=== PATIENT | female | born 1935 | race Caucasian/White ===

== ENCOUNTER → 2017-12-20 | Outpatient (CLI) | payer OTHER, BC ==
[~2017-12-20] MED LIST: AMLODIPINE BESYL5 MG PO; ASPIRIN EC81 M1 PO; BENAZEPRIL HCL20 MG PO; BIOTIN1 MG PO; CALCITRIOL0.25 MCG PO; CALTRATE-600 W1 EACH PO; COUMADIN 4 MG TA4 M1 PO; COUMADIN 5 MG TA5 M1 PO; FISH OIL 1,0001 EAC5 PO; FISH OIL 1,2001 EAC3 PO; GLUCOPHAGE XR750 MG PO; HYDROCHLOROTHIA25 M2 PO; KLOR-CON 10 ER10 MEQ PO; LASIX 40 MG TAB40 M2 PO; LOPRESSOR 50 MG50 M1 PO; PERCOCET 5-3251 EACH PO; PREDNISONE 10 M10 MG PO; PREDNISONE 5 MG5 M1 PO; PREDNISONE PO; PRILOSEC20 MG PO; SLOW-MAG64 MG PO; TOPROL XL25 MG PO; VITAMIN D400 UNI1 PO; XANAX 0.5 MG0.5 M1 PO; XARELTO10 MG PO; ZOCOR 20 MG TAB20 M1 PO
== END ==
LOC: HYPER 07:16
DX: T81.31XD Disruption of external operation (surgical) wound, not elsewhere classified, subsequent encounter (principal); E11.622 Type 2 diabetes mellitus with other skin ulcer; L97.321 Non-pressure chronic ulcer of left ankle limited to breakdown of skin; C44.729 Squamous cell carcinoma of skin of left lower limb, including hip; F41.9 Anxiety disorder, unspecified; F32.9 Major depressive disorder, single episode, unspecified; Z85.828 Personal history of other malignant neoplasm of skin; Z87.891 Personal history of nicotine dependence; Y83.8 Other surgical procedures as the cause of abnormal reaction of the patient, or of later complication, without mention of misadventure at the time of the procedure

== ENCOUNTER → 2017-12-27 | Outpatient (CLI) | payer OTHER, BC | LOC: HYPER 07:15 | DX: T81.31XD Disruption of external operation (surgical) wound, not elsewhere classified, subsequent encounter (principal); E11.622 Type 2 diabetes mellitus with other skin ulcer; L97.321 Non-pressure chronic ulcer of left ankle limited to breakdown of skin; C44.729 Squamous cell carcinoma of skin of left lower limb, including hip; F41.9 Anxiety disorder, unspecified; F32.9 Major depressive disorder, single episode, unspecified; Z87.891 Personal history of nicotine dependence; Y83.8 Other surgical procedures as the cause of abnormal reaction of the patient, or of later complication, without mention of misadventure at the time of the procedure ==

== ENCOUNTER → 2018-01-10 | Outpatient (CLI) | payer OTHER, BC | LOC: HYPER 06:57 | DX: T86.828 Other complications of skin graft (allograft) (autograft) (principal); E11.622 Type 2 diabetes mellitus with other skin ulcer; L97.321 Non-pressure chronic ulcer of left ankle limited to breakdown of skin; C44.729 Squamous cell carcinoma of skin of left lower limb, including hip; F41.9 Anxiety disorder, unspecified; F32.9 Major depressive disorder, single episode, unspecified; Z85.828 Personal history of other malignant neoplasm of skin; Y83.2 Surgical operation with anastomosis, bypass or graft as the cause of abnormal reaction of the patient, or of later complication, without mention of misadventure at the time of the procedure ==

== ENCOUNTER → 2018-01-18 | Outpatient (CLI) | payer OTHER, BC | LOC: HYPER 06:51 | DX: T86.828 Other complications of skin graft (allograft) (autograft) (principal); E11.622 Type 2 diabetes mellitus with other skin ulcer; L97.321 Non-pressure chronic ulcer of left ankle limited to breakdown of skin; C44.729 Squamous cell carcinoma of skin of left lower limb, including hip; F41.9 Anxiety disorder, unspecified; F32.9 Major depressive disorder, single episode, unspecified; Z87.891 Personal history of nicotine dependence; Y83.2 Surgical operation with anastomosis, bypass or graft as the cause of abnormal reaction of the patient, or of later complication, without mention of misadventure at the time of the procedure ==

== ENCOUNTER → 2018-01-26 | Outpatient (CLI) | payer OTHER, BC | LOC: HYPER 06:47 | DX: T86.828 Other complications of skin graft (allograft) (autograft) (principal); E11.622 Type 2 diabetes mellitus with other skin ulcer; L97.321 Non-pressure chronic ulcer of left ankle limited to breakdown of skin; C44.729 Squamous cell carcinoma of skin of left lower limb, including hip; F32.9 Major depressive disorder, single episode, unspecified; F41.9 Anxiety disorder, unspecified; Z87.891 Personal history of nicotine dependence; Y83.2 Surgical operation with anastomosis, bypass or graft as the cause of abnormal reaction of the patient, or of later complication, without mention of misadventure at the time of the procedure ==

== ENCOUNTER → 2018-02-03 | Outpatient (CLI) | payer OTHER, BC | LOC: HYPER 07:03 | DX: T86.828 Other complications of skin graft (allograft) (autograft) (principal); E11.622 Type 2 diabetes mellitus with other skin ulcer; L97.321 Non-pressure chronic ulcer of left ankle limited to breakdown of skin; C44.729 Squamous cell carcinoma of skin of left lower limb, including hip; F41.9 Anxiety disorder, unspecified; F32.9 Major depressive disorder, single episode, unspecified; Z87.891 Personal history of nicotine dependence; Z85.828 Personal history of other malignant neoplasm of skin; Y83.2 Surgical operation with anastomosis, bypass or graft as the cause of abnormal reaction of the patient, or of later complication, without mention of misadventure at the time of the procedure ==

== ENCOUNTER → 2018-02-23 | Outpatient (CLI) | payer OTHER, BC | LOC: HYPER 02-09 07:58 | DX: T81.31XD Disruption of external operation (surgical) wound, not elsewhere classified, subsequent encounter (principal); C44.729 Squamous cell carcinoma of skin of left lower limb, including hip; F41.9 Anxiety disorder, unspecified; F32.9 Major depressive disorder, single episode, unspecified; Z87.891 Personal history of nicotine dependence; Y83.8 Other surgical procedures as the cause of abnormal reaction of the patient, or of later complication, without mention of misadventure at the time of the procedure ==

== ENCOUNTER → 2018-03-23 | Outpatient (CLI) | payer OTHER, BC ==
[~2018-03-23] MED LIST changes: +BUPROPION HCL150 M1 PO; +DAPTOMYCIN350 MG IV; +IRON325 PO; +LASIX 20 MG TAB20 MG PO; +METOPROLOL TART25 MG PO; +NEURONTIN 300300 M1 PO; +POTASSIUM20 MEQ/15 PO
== END ==
LOC: HYPER 07:02
DX: T81.31XD Disruption of external operation (surgical) wound, not elsewhere classified, subsequent encounter (principal); E11.622 Type 2 diabetes mellitus with other skin ulcer; L97.321 Non-pressure chronic ulcer of left ankle limited to breakdown of skin; C44.729 Squamous cell carcinoma of skin of left lower limb, including hip; F41.9 Anxiety disorder, unspecified; F32.9 Major depressive disorder, single episode, unspecified; Z87.891 Personal history of nicotine dependence; Z85.828 Personal history of other malignant neoplasm of skin; Y83.8 Other surgical procedures as the cause of abnormal reaction of the patient, or of later complication, without mention of misadventure at the time of the procedure

== ENCOUNTER → 2018-03-28 | Outpatient (CLI) | payer OTHER, BC ==
[~2018-03-28] VITALS: Ht 162.6 cm; Wt 61.2 kg
--- NOTE | ~2018-03-28 | P ---
[facility] [place] [address] PROCEDURE REPORT Name: JENNIFER LUAJN Katina Room #: REG [facility]#: [id number] Admission: 03/28/18 Attend Phys: Emeterio Levy MD Discharge: Date of : 39 Report #: [id number] THIS REPORT FOR: //name// CC: Emeterio Levy BRIEF HISTORY: The patient is an 82-year-old woman who has a history of colon polyps. She has had recurrent diverticulitis in the past, episode of diverticulitis and also septicemia with positive blood cultures. 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 She is on Xarelto for her heart valve and AFib. PREOPERATIVE DIAGNOSES: History of colon polyps, recurrent diverticulitis. POSTOPERATIVE DIAGNOSES: 1. Colon polyps. 2. Rectal polyp. 3. Diverticulosis coli. 4. Internal hemorrhoids. MEDICATIONS: Deep sedation with propofol per anesthesia. SPECIMENS: 1. Cecal polyp. 2. Polyps x 2 rectum. ESTIMATED BLOOD LOSS: 3 mL. PROCEDURE: Colonoscopy to cecum with snare polypectomy. FINDINGS: Prior to propofol sedation, procedure of colonoscopy discussed with the patient of all potential risks and its complications. She indicates she understands and desires to proceed. DESCRIPTION OF PROCEDURE: With the patient in left lateral decubitus position, digital examination was completed, which revealed no abnormalities. Subsequently, we started the procedure with the Olympus video colonoscope. However, as we did advance the scope into the sigmoid, there were sharp angulations, scope would not pass even when splinted in the abdomen. We switched to hybrid colonoscope and very carefully we are going to pass it through the difficult sigmoid colon. The scope was advanced into the cecum, which was identified by the appendiceal orifice and the ileocecal valve. I was able to advance the tip of the scope to mouth of the ileocecal valve, but due to looping could not pass it into the ileum. At that point, the scope was slowly withdrawn and careful circumferential views were obtained. It is noted there were several large stools of liquidy stool material scattered around the colon. Fortunately, these were fairly thin with minimal particulate material and we [facility] [address] [place] [address] PROCEDURE REPORT Name: JENNIFER LUJAN Katina Room #: REG [facility]..#: [id number] Admission: 03/28/18 Attend Phys: Emeterio Levy MD Discharge: Date of : 39 Report #: [id number] were able to remove much of this material and overall a satisfactory prep was obtained. In the cecum, a sessile 6-8 mm polyp was seen and removed by snare polypectomy. Unfortunately, they did not come out with the initial pass. We then cleaned up edges of the device with biopsy forceps. The scope was then withdrawn to remainder of the colon. The mucosa was within normal limits, normal vascular pattern, normal light reflex. There were a few scattered diverticula seen in the proximal colon. There was no endoscopic evidence of diverticulitis. As we withdrew the scope, no additional abnormalities were noted until the left colon was reached, particularly the sigmoid colon she was noted to have moderately severe diverticular disease without endoscopic evidence of diverticulitis. There is no purulent material or erythema. There was sharp angulation in the region of the distal sigmoid, which likely caused difficulty with forward advancing the scope initially. However, no other lesions were seen. The lumen was also somewhat narrowed consistent with recurrent diverticulitis. Again, active diverticulitis was not seen. In the rectum, 2 polyps were seen in the range of about 5 mm each. They were each removed by cold snare polypectomy and recovered. Upon retroflexion, hemorrhoids were seen. Scope was withdrawn. The patient tolerated the procedure well. CONDITION OF THE PATIENT UPON DISCHARGE: Following the procedure, the patient is drowsy and arousable. She will be discharged home when fully ambulatory. INSTRUCTIONS TO THE PATIENT AND FAMILY AT THE TIME OF DISCHARGE: We will follow up on the path. However, since it was piecemeal removal of the polyp in the cecum, we will have her return in 2 years for high risk screening and to ensure complete removal of polyp. She has had recent diverticulitis. I do not see evidence of diverticulitis on exam today. However, due to her history, segmental resection would be reasonable. We will discuss further with the patient. At this point, suggest high-fiber diet. Also, suggest MiraLax once or twice daily as needed for management of constipation. She will return to care of Dr. Emeterio Schwab and return to see me as needed. By: [id number] Emeterio Levy MD /nt
--- NOTE | 2018-03-30 15:06 | PATH ---
[facility] [address] [place] [address] PATHOLOGY RPT PROCEDURE Name: SINDI LUJAN Katina Room #: REG [facility] MShonda.#: [id number] Admission: 03/28/18 Date of : 39 Discharge: Report #: [id number] Path Case #: [id number] [facility] Accession Number: [id number] . 01 Material submitted: . PART A: POLYP AT CECUM PART B: POLYP AT RECTUM X2 . 01 Clinical history: . Pre-OP DX: Diverticulitis Post-OP DX: Colon polyp, rectal polyp, diverticulosis . 02 Diagnosis: A. Polyp, at cecum, endoscopic biopsy: - Tubular adenoma, multiple fragments. - Negative for high grade dysplasia. . B. Polyp x2, rectum, endoscopic biopsy: - Tubular adenoma without high grade dysplasia. - Hyperplastic polyp without dysplasia. . (IUV:mml; 03/30/2018) QLM/03/30/2018 . 02 Electronically signed: . Katie Richardson MD, Pathologist NPI- [id number] . 01 Gross description: . A. Received in formalin labeled "Sindi Lujan, polyp at cecum," are multiple segments of martinez soft tissue measuring 2.1 x 0.9 x 0.3 cm in aggregate dimensions. The specimen is filtered and entirely submitted in cassette A1. . B. Received in formalin labeled "Sindi Lujan, polyp rectum x2," are 2 segments of martinez soft tissue measuring 1.1 x 0.3 x 0.3 cm in aggregate dimensions and ranging from 0.5 to 0.6 cm in maximum dimension. The specimen is submitted entirely in cassette B1. (TSD; 03/28/2018) TOB/TOB . 02 Pathologist provided ICD-10: D12.0, D12.8 . 02 CPT . 961753, 076332 Specimen Comment: A courtesy [place] [address] PATHOLOGY RPT PROCEDURE Name: SINDI LUJAN Room #: REG [facility]#: [id number] Admission: 03/28/18 Date of : 39 Discharge: Report #: [id number] Path Case #: [id number] Specimen Comment: [phone], . Specimen Comment: Report sent to / DR FITCH Performed at: 01 [facility] [address], [place], [place] [id number] MD Remigio Pulliam MD Phone: [phone] Performed at: [address] [id number] MD Katie Richardson MD Phone: [phone]
== END | disposition home or self-care (01) ==
LOC: GI 06:58
DX: D12.0 Benign neoplasm of cecum (principal); D12.8 Benign neoplasm of rectum; K57.30 Diverticulosis of large intestine without perforation or abscess without bleeding; K64.8 Other hemorrhoids; I10 Essential (primary) hypertension; E11.9 Type 2 diabetes mellitus without complications; I48.91 Unspecified atrial fibrillation; E78.5 Hyperlipidemia, unspecified; K21.9 Gastro-esophageal reflux disease without esophagitis; M35.3 Polymyalgia rheumatica; F32.9 Major depressive disorder, single episode, unspecified; F41.9 Anxiety disorder, unspecified; Z98.890 Other specified postprocedural states; Z79.01 Long term (current) use of anticoagulants; Z86.010 Personal history of colon polyps; Z86.73 Personal history of transient ischemic attack (TIA), and cerebral infarction without residual deficits; Z95.2 Presence of prosthetic heart valve; Z95.0 Presence of cardiac pacemaker; Z85.828 Personal history of other malignant neoplasm of skin; Z87.891 Personal history of nicotine dependence; Z88.0 Allergy status to penicillin; Z79.899 Other long term (current) drug therapy
CPT/HCPCS: 62110; 62900

== ENCOUNTER → 2018-05-16 | Outpatient (CLI) | payer OTHER, BC | LOC: HYPER 04-25 06:41 | DX: T81.31XD Disruption of external operation (surgical) wound, not elsewhere classified, subsequent encounter (principal); E11.622 Type 2 diabetes mellitus with other skin ulcer; L97.321 Non-pressure chronic ulcer of left ankle limited to breakdown of skin; C44.729 Squamous cell carcinoma of skin of left lower limb, including hip; F41.9 Anxiety disorder, unspecified; F32.9 Major depressive disorder, single episode, unspecified; Z87.891 Personal history of nicotine dependence; Z85.828 Personal history of other malignant neoplasm of skin; Y83.8 Other surgical procedures as the cause of abnormal reaction of the patient, or of later complication, without mention of misadventure at the time of the procedure ==

== ENCOUNTER → 2019-04-24 | Outpatient (CLI) | payer OTHER, BC ==
--- NOTE | ~2019-04-24 | HC ---
[facility] [place] [address] CONSULTATION Name: JENNIFER LUJAN [facility] [id number] Admission: 04/24/19 Attend Phys: Carlos Eduardo Garcia MD Discharge: Date of : 39 Report #: [id number] THIS REPORT FOR: //name// CC: RICKI Garcia DATE OF SERVICE: 04/24/2019 HYPERBARIC OXYGEN NOTE PERSONAL PHYSICIAN: Emeterio Schwab M.D. CHIEF COMPLAINT: Osteoradionecrosis of the mandible. 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 It was noted in February by Dr. South on a CT scan of the neck that the patient had developed cortical irregularity and subcortical lucency within the anterior mandible, consistent with osteonecrosis of the mandible. Dr. South has referred the patient to us for hyperbaric oxygen therapy. The patient recently had a left submandibular abscess, which was drained, and started on IV antibiotics. The patient is now followed by Dr. Ricki Ramos for this recent abscess. We have been asked to see the patient and evaluate her for the use of hyperbaric oxygen therapy for treatment of osteoradionecrosis of the mandible. I reviewed the use of hyperbaric oxygen therapy with the patient and she is agreeable to proceeding on our osteoradionecrosis protocol, which will be 2.4 atmospheres absolute treatment with 2 air breaks. For a minimum of 30 treatments, we will continue antibiotics under the care of Dr. Fabrice Ramos. IMPRESSION: 1. 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 2. 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 PLAN: The patient once again will have adjunctive hyperbaric oxygen therapy for treatment of the osteoradionecrosis of the mandible. For complete H and P, please see the EMR wound expert note which is in our EMR. By: [id number] Carlos Eduardo Garcia MD /nt
== END ==
LOC: HYPER 13:03
DX: T81.89XA Other complications of procedures, not elsewhere classified, initial encounter (principal); E11.622 Type 2 diabetes mellitus with other skin ulcer; L98.491 Non-pressure chronic ulcer of skin of other sites limited to breakdown of skin; L59.8 Other specified disorders of the skin and subcutaneous tissue related to radiation; C44.729 Squamous cell carcinoma of skin of left lower limb, including hip; C44.320 Squamous cell carcinoma of skin of unspecified parts of face; I48.91 Unspecified atrial fibrillation; I50.32 Chronic diastolic (congestive) heart failure; M35.3 Polymyalgia rheumatica; M19.90 Unspecified osteoarthritis, unspecified site; M48.00 Spinal stenosis, site unspecified; F41.9 Anxiety disorder, unspecified; F32.9 Major depressive disorder, single episode, unspecified; Z87.891 Personal history of nicotine dependence; Z86.73 Personal history of transient ischemic attack (TIA), and cerebral infarction without residual deficits; Z95.0 Presence of cardiac pacemaker; Z98.49 Cataract extraction status, unspecified eye; Z95.4 Presence of other heart-valve replacement; Z85.828 Personal history of other malignant neoplasm of skin; Y92.89 Other specified places as the place of occurrence of the external cause; Y83.8 Other surgical procedures as the cause of abnormal reaction of the patient, or of later complication, without mention of misadventure at the time of the procedure; Y84.2 Radiological procedure and radiotherapy as the cause of abnormal reaction of the patient, or of later complication, without mention of misadventure at the time of the procedure

== ENCOUNTER → 2019-05-03 | Outpatient (CLI) | payer OTHER, BC | LOC: HYPER 12:11 | DX: T81.89XD Other complications of procedures, not elsewhere classified, subsequent encounter (principal); S01.80XD Unspecified open wound of other part of head, subsequent encounter; L59.8 Other specified disorders of the skin and subcutaneous tissue related to radiation; E11.622 Type 2 diabetes mellitus with other skin ulcer; L98.491 Non-pressure chronic ulcer of skin of other sites limited to breakdown of skin; C44.729 Squamous cell carcinoma of skin of left lower limb, including hip; C44.320 Squamous cell carcinoma of skin of unspecified parts of face; I48.91 Unspecified atrial fibrillation; I50.32 Chronic diastolic (congestive) heart failure; M35.3 Polymyalgia rheumatica; M48.00 Spinal stenosis, site unspecified; M19.90 Unspecified osteoarthritis, unspecified site; M87.88 Other osteonecrosis, other site; F41.9 Anxiety disorder, unspecified; F32.9 Major depressive disorder, single episode, unspecified; Z98.49 Cataract extraction status, unspecified eye; Z86.73 Personal history of transient ischemic attack (TIA), and cerebral infarction without residual deficits; Z87.891 Personal history of nicotine dependence; Z95.4 Presence of other heart-valve replacement; Z95.0 Presence of cardiac pacemaker; Z85.79 Personal history of other malignant neoplasms of lymphoid, hematopoietic and related tissues; X58.XXXD Exposure to other specified factors, subsequent encounter; Y84.2 Radiological procedure and radiotherapy as the cause of abnormal reaction of the patient, or of later complication, without mention of misadventure at the time of the procedure; Y83.8 Other surgical procedures as the cause of abnormal reaction of the patient, or of later complication, without mention of misadventure at the time of the procedure ==

== ENCOUNTER → 2019-05-05 | Outpatient (CLI) | payer OTHER, BC | LOC: HYPER 11:13 | DX: T81.89XD Other complications of procedures, not elsewhere classified, subsequent encounter (principal); L59.8 Other specified disorders of the skin and subcutaneous tissue related to radiation; E11.622 Type 2 diabetes mellitus with other skin ulcer; L98.491 Non-pressure chronic ulcer of skin of other sites limited to breakdown of skin; S01.80XD Unspecified open wound of other part of head, subsequent encounter; C44.320 Squamous cell carcinoma of skin of unspecified parts of face; C44.729 Squamous cell carcinoma of skin of left lower limb, including hip; I48.91 Unspecified atrial fibrillation; I50.32 Chronic diastolic (congestive) heart failure; M35.3 Polymyalgia rheumatica; M48.00 Spinal stenosis, site unspecified; M19.90 Unspecified osteoarthritis, unspecified site; M87.88 Other osteonecrosis, other site; F41.9 Anxiety disorder, unspecified; F32.9 Major depressive disorder, single episode, unspecified; Z87.891 Personal history of nicotine dependence; Z95.4 Presence of other heart-valve replacement; Z98.49 Cataract extraction status, unspecified eye; Z86.73 Personal history of transient ischemic attack (TIA), and cerebral infarction without residual deficits; Z95.0 Presence of cardiac pacemaker; Z79.01 Long term (current) use of anticoagulants; Z85.828 Personal history of other malignant neoplasm of skin; X58.XXXD Exposure to other specified factors, subsequent encounter; Y84.2 Radiological procedure and radiotherapy as the cause of abnormal reaction of the patient, or of later complication, without mention of misadventure at the time of the procedure; Y83.8 Other surgical procedures as the cause of abnormal reaction of the patient, or of later complication, without mention of misadventure at the time of the procedure ==

== ENCOUNTER → 2019-05-08 | Outpatient (CLI) | payer OTHER, BC | LOC: HYPER 11:50 | DX: T81.89XD Other complications of procedures, not elsewhere classified, subsequent encounter (principal); L59.8 Other specified disorders of the skin and subcutaneous tissue related to radiation; E11.622 Type 2 diabetes mellitus with other skin ulcer; S01.80XD Unspecified open wound of other part of head, subsequent encounter; L98.491 Non-pressure chronic ulcer of skin of other sites limited to breakdown of skin; M87.88 Other osteonecrosis, other site; C44.729 Squamous cell carcinoma of skin of left lower limb, including hip; C44.320 Squamous cell carcinoma of skin of unspecified parts of face; I48.91 Unspecified atrial fibrillation; I50.32 Chronic diastolic (congestive) heart failure; M35.3 Polymyalgia rheumatica; M48.00 Spinal stenosis, site unspecified; M19.90 Unspecified osteoarthritis, unspecified site; Z86.73 Personal history of transient ischemic attack (TIA), and cerebral infarction without residual deficits; Z95.0 Presence of cardiac pacemaker; Z79.01 Long term (current) use of anticoagulants; Z87.891 Personal history of nicotine dependence; X58.XXXD Exposure to other specified factors, subsequent encounter; Y84.2 Radiological procedure and radiotherapy as the cause of abnormal reaction of the patient, or of later complication, without mention of misadventure at the time of the procedure; Y83.8 Other surgical procedures as the cause of abnormal reaction of the patient, or of later complication, without mention of misadventure at the time of the procedure ==

== ENCOUNTER → 2019-05-09 | Outpatient (CLI) | payer OTHER, BC | LOC: HYPER 14:52 | DX: T81.89XD Other complications of procedures, not elsewhere classified, subsequent encounter (principal); S01.80XD Unspecified open wound of other part of head, subsequent encounter; L59.8 Other specified disorders of the skin and subcutaneous tissue related to radiation; M87.88 Other osteonecrosis, other site; E11.622 Type 2 diabetes mellitus with other skin ulcer; L98.494 Non-pressure chronic ulcer of skin of other sites with necrosis of bone; C44.729 Squamous cell carcinoma of skin of left lower limb, including hip; C44.320 Squamous cell carcinoma of skin of unspecified parts of face; I50.32 Chronic diastolic (congestive) heart failure; M19.90 Unspecified osteoarthritis, unspecified site; Z86.73 Personal history of transient ischemic attack (TIA), and cerebral infarction without residual deficits; Z95.0 Presence of cardiac pacemaker; Z87.891 Personal history of nicotine dependence; X58.XXXD Exposure to other specified factors, subsequent encounter; Y83.8 Other surgical procedures as the cause of abnormal reaction of the patient, or of later complication, without mention of misadventure at the time of the procedure ==

== ENCOUNTER → 2019-05-10 | Outpatient (CLI) | payer OTHER, BC | LOC: HYPER 08:50 | DX: T81.89XD Other complications of procedures, not elsewhere classified, subsequent encounter (principal); E11.622 Type 2 diabetes mellitus with other skin ulcer; L98.491 Non-pressure chronic ulcer of skin of other sites limited to breakdown of skin; L59.8 Other specified disorders of the skin and subcutaneous tissue related to radiation; S01.80XD Unspecified open wound of other part of head, subsequent encounter; C44.729 Squamous cell carcinoma of skin of left lower limb, including hip; C44.320 Squamous cell carcinoma of skin of unspecified parts of face; I48.91 Unspecified atrial fibrillation; I50.32 Chronic diastolic (congestive) heart failure; M35.3 Polymyalgia rheumatica; M48.00 Spinal stenosis, site unspecified; M19.90 Unspecified osteoarthritis, unspecified site; M87.88 Other osteonecrosis, other site; Z86.73 Personal history of transient ischemic attack (TIA), and cerebral infarction without residual deficits; Z95.0 Presence of cardiac pacemaker; Z87.891 Personal history of nicotine dependence; X58.XXXD Exposure to other specified factors, subsequent encounter; Y84.2 Radiological procedure and radiotherapy as the cause of abnormal reaction of the patient, or of later complication, without mention of misadventure at the time of the procedure; Y83.8 Other surgical procedures as the cause of abnormal reaction of the patient, or of later complication, without mention of misadventure at the time of the procedure ==

== ENCOUNTER → 2019-05-11 | Outpatient (CLI) | payer OTHER, BC | LOC: HYPER 15:35 | DX: T81.89XD Other complications of procedures, not elsewhere classified, subsequent encounter (principal); L59.8 Other specified disorders of the skin and subcutaneous tissue related to radiation; E11.622 Type 2 diabetes mellitus with other skin ulcer; L98.491 Non-pressure chronic ulcer of skin of other sites limited to breakdown of skin; S01.80XD Unspecified open wound of other part of head, subsequent encounter; C44.320 Squamous cell carcinoma of skin of unspecified parts of face; C44.729 Squamous cell carcinoma of skin of left lower limb, including hip; I48.91 Unspecified atrial fibrillation; I50.32 Chronic diastolic (congestive) heart failure; M35.3 Polymyalgia rheumatica; M48.00 Spinal stenosis, site unspecified; M19.90 Unspecified osteoarthritis, unspecified site; M87.88 Other osteonecrosis, other site; Z86.73 Personal history of transient ischemic attack (TIA), and cerebral infarction without residual deficits; Z87.891 Personal history of nicotine dependence; Z95.0 Presence of cardiac pacemaker; X58.XXXD Exposure to other specified factors, subsequent encounter; Y84.2 Radiological procedure and radiotherapy as the cause of abnormal reaction of the patient, or of later complication, without mention of misadventure at the time of the procedure; Y83.8 Other surgical procedures as the cause of abnormal reaction of the patient, or of later complication, without mention of misadventure at the time of the procedure ==

== ENCOUNTER → 2019-05-12 | Outpatient (CLI) | payer OTHER, BC | LOC: HYPER 10:03 | DX: T81.89XD Other complications of procedures, not elsewhere classified, subsequent encounter (principal); L59.8 Other specified disorders of the skin and subcutaneous tissue related to radiation; E11.622 Type 2 diabetes mellitus with other skin ulcer; L98.491 Non-pressure chronic ulcer of skin of other sites limited to breakdown of skin; S01.80XD Unspecified open wound of other part of head, subsequent encounter; C44.729 Squamous cell carcinoma of skin of left lower limb, including hip; C44.320 Squamous cell carcinoma of skin of unspecified parts of face; I48.91 Unspecified atrial fibrillation; I50.32 Chronic diastolic (congestive) heart failure; M35.3 Polymyalgia rheumatica; M48.00 Spinal stenosis, site unspecified; M19.90 Unspecified osteoarthritis, unspecified site; M87.88 Other osteonecrosis, other site; Z86.73 Personal history of transient ischemic attack (TIA), and cerebral infarction without residual deficits; Z95.0 Presence of cardiac pacemaker; Z87.891 Personal history of nicotine dependence; X58.XXXD Exposure to other specified factors, subsequent encounter; Y84.2 Radiological procedure and radiotherapy as the cause of abnormal reaction of the patient, or of later complication, without mention of misadventure at the time of the procedure; Y83.8 Other surgical procedures as the cause of abnormal reaction of the patient, or of later complication, without mention of misadventure at the time of the procedure ==

== ENCOUNTER → 2019-05-15 | Outpatient (CLI) | payer OTHER, BC | LOC: HYPER 08:39 | DX: T81.89XD Other complications of procedures, not elsewhere classified, subsequent encounter (principal); E11.622 Type 2 diabetes mellitus with other skin ulcer; L98.491 Non-pressure chronic ulcer of skin of other sites limited to breakdown of skin; S01.80XD Unspecified open wound of other part of head, subsequent encounter; C44.729 Squamous cell carcinoma of skin of left lower limb, including hip; C44.320 Squamous cell carcinoma of skin of unspecified parts of face; L59.8 Other specified disorders of the skin and subcutaneous tissue related to radiation; I48.91 Unspecified atrial fibrillation; I50.32 Chronic diastolic (congestive) heart failure; M19.90 Unspecified osteoarthritis, unspecified site; Z86.73 Personal history of transient ischemic attack (TIA), and cerebral infarction without residual deficits; Z87.891 Personal history of nicotine dependence; Z95.0 Presence of cardiac pacemaker; Z79.01 Long term (current) use of anticoagulants; Y83.8 Other surgical procedures as the cause of abnormal reaction of the patient, or of later complication, without mention of misadventure at the time of the procedure; X58.XXXD Exposure to other specified factors, subsequent encounter ==

== ENCOUNTER → 2019-05-16 | Outpatient (CLI) | payer OTHER, BC | LOC: HYPER 13:31 | DX: T81.89XD Other complications of procedures, not elsewhere classified, subsequent encounter (principal); E11.622 Type 2 diabetes mellitus with other skin ulcer; L98.491 Non-pressure chronic ulcer of skin of other sites limited to breakdown of skin; L59.8 Other specified disorders of the skin and subcutaneous tissue related to radiation; S01.80XD Unspecified open wound of other part of head, subsequent encounter; C44.729 Squamous cell carcinoma of skin of left lower limb, including hip; C44.320 Squamous cell carcinoma of skin of unspecified parts of face; M87.88 Other osteonecrosis, other site; I48.91 Unspecified atrial fibrillation; I50.32 Chronic diastolic (congestive) heart failure; M19.90 Unspecified osteoarthritis, unspecified site; Z86.73 Personal history of transient ischemic attack (TIA), and cerebral infarction without residual deficits; Z87.891 Personal history of nicotine dependence; Z79.01 Long term (current) use of anticoagulants; Z95.0 Presence of cardiac pacemaker; Y83.8 Other surgical procedures as the cause of abnormal reaction of the patient, or of later complication, without mention of misadventure at the time of the procedure; X58.XXXD Exposure to other specified factors, subsequent encounter; Y84.2 Radiological procedure and radiotherapy as the cause of abnormal reaction of the patient, or of later complication, without mention of misadventure at the time of the procedure ==

== ENCOUNTER → 2019-05-17 | Outpatient (CLI) | payer OTHER, BC ==
[~2019-05-17] MED LIST changes: +DULOXETINE HCL30 MG PO; +LOTENSIN10 MG PO; +LYRICA25 MG PO; +NORVASC 2.5 MG2.5 M1 PO; +XARELTO20 MG PO
== END ==
LOC: HYPER 15:10
DX: T81.89XD Other complications of procedures, not elsewhere classified, subsequent encounter (principal); E11.622 Type 2 diabetes mellitus with other skin ulcer; L98.491 Non-pressure chronic ulcer of skin of other sites limited to breakdown of skin; S01.80XD Unspecified open wound of other part of head, subsequent encounter; C44.729 Squamous cell carcinoma of skin of left lower limb, including hip; C44.320 Squamous cell carcinoma of skin of unspecified parts of face; L59.8 Other specified disorders of the skin and subcutaneous tissue related to radiation; I48.91 Unspecified atrial fibrillation; I50.32 Chronic diastolic (congestive) heart failure; M19.90 Unspecified osteoarthritis, unspecified site; Z86.73 Personal history of transient ischemic attack (TIA), and cerebral infarction without residual deficits; Z87.891 Personal history of nicotine dependence; Z79.01 Long term (current) use of anticoagulants; Z95.0 Presence of cardiac pacemaker; Y83.8 Other surgical procedures as the cause of abnormal reaction of the patient, or of later complication, without mention of misadventure at the time of the procedure; X58.XXXD Exposure to other specified factors, subsequent encounter

== ENCOUNTER → 2019-05-18 | Outpatient (CLI) | payer OTHER, BC | LOC: HYPER 12:11 | DX: T81.89XD Other complications of procedures, not elsewhere classified, subsequent encounter (principal); E11.622 Type 2 diabetes mellitus with other skin ulcer; L98.491 Non-pressure chronic ulcer of skin of other sites limited to breakdown of skin; S01.80XD Unspecified open wound of other part of head, subsequent encounter; L59.8 Other specified disorders of the skin and subcutaneous tissue related to radiation; C44.729 Squamous cell carcinoma of skin of left lower limb, including hip; C44.320 Squamous cell carcinoma of skin of unspecified parts of face; M87.88 Other osteonecrosis, other site; I48.91 Unspecified atrial fibrillation; I50.32 Chronic diastolic (congestive) heart failure; Z86.73 Personal history of transient ischemic attack (TIA), and cerebral infarction without residual deficits; Z95.0 Presence of cardiac pacemaker; Y83.8 Other surgical procedures as the cause of abnormal reaction of the patient, or of later complication, without mention of misadventure at the time of the procedure; Y84.2 Radiological procedure and radiotherapy as the cause of abnormal reaction of the patient, or of later complication, without mention of misadventure at the time of the procedure ==

== ENCOUNTER → 2019-05-19 | Outpatient (CLI) | payer OTHER, BC ==
[2019-05-19 11:35] VITALS: BP 189/59
[2019-05-19 12:55] VITALS: BP 154/59
--- NOTE | 2019-05-19 13:58 | NUR ---
IN FOR 1ST OF 2 INJECTAFER INFUSIONS FOR IRON DEFICIENCY ANEMIA. ADMISSION HISTORY AND ASSESSMENT COMPLETED. RECEIVED GOOD BLOOD RETURN FROM RT UPPER ARM PICC LINE AND FLUSHED EASILY. TOLERATED INFUSION WITHOUT INCIDENT. OBSERVED FOR 30 MINUTES. POST VITAL SIGNS GOOD. SALINE LOCK PICC LINE. DISMISSED IN STABLE CONDITION. TO RETURN NEXT WEDNESDAY FOR 2ND INFUSION.
== END ==
LOC: HYPER 11:05
DX: T81.89XD Other complications of procedures, not elsewhere classified, subsequent encounter (principal); C44.320 Squamous cell carcinoma of skin of unspecified parts of face; E11.622 Type 2 diabetes mellitus with other skin ulcer; L98.491 Non-pressure chronic ulcer of skin of other sites limited to breakdown of skin; S01.80XD Unspecified open wound of other part of head, subsequent encounter; L59.8 Other specified disorders of the skin and subcutaneous tissue related to radiation; C44.729 Squamous cell carcinoma of skin of left lower limb, including hip; M87.88 Other osteonecrosis, other site; I48.91 Unspecified atrial fibrillation; I50.32 Chronic diastolic (congestive) heart failure; M19.90 Unspecified osteoarthritis, unspecified site; Z86.73 Personal history of transient ischemic attack (TIA), and cerebral infarction without residual deficits; Z87.891 Personal history of nicotine dependence; Z95.0 Presence of cardiac pacemaker; Z79.01 Long term (current) use of anticoagulants; Y83.8 Other surgical procedures as the cause of abnormal reaction of the patient, or of later complication, without mention of misadventure at the time of the procedure; Y84.2 Radiological procedure and radiotherapy as the cause of abnormal reaction of the patient, or of later complication, without mention of misadventure at the time of the procedure; X58.XXXD Exposure to other specified factors, subsequent encounter
CPT/HCPCS: 95000

== ENCOUNTER → 2019-05-22 | Outpatient (CLI) | payer OTHER, BC | LOC: HYPER 08:31 | DX: T81.89XD Other complications of procedures, not elsewhere classified, subsequent encounter (principal); L59.8 Other specified disorders of the skin and subcutaneous tissue related to radiation; E11.622 Type 2 diabetes mellitus with other skin ulcer; L98.491 Non-pressure chronic ulcer of skin of other sites limited to breakdown of skin; S01.80XD Unspecified open wound of other part of head, subsequent encounter; M87.88 Other osteonecrosis, other site; C44.729 Squamous cell carcinoma of skin of left lower limb, including hip; C44.320 Squamous cell carcinoma of skin of unspecified parts of face; I48.91 Unspecified atrial fibrillation; I50.32 Chronic diastolic (congestive) heart failure; M35.3 Polymyalgia rheumatica; M19.90 Unspecified osteoarthritis, unspecified site; M48.00 Spinal stenosis, site unspecified; Z86.73 Personal history of transient ischemic attack (TIA), and cerebral infarction without residual deficits; Z95.0 Presence of cardiac pacemaker; Z87.891 Personal history of nicotine dependence; X58.XXXD Exposure to other specified factors, subsequent encounter; Y84.2 Radiological procedure and radiotherapy as the cause of abnormal reaction of the patient, or of later complication, without mention of misadventure at the time of the procedure; Y83.8 Other surgical procedures as the cause of abnormal reaction of the patient, or of later complication, without mention of misadventure at the time of the procedure ==

== ENCOUNTER → 2019-05-23 | Outpatient (CLI) | payer OTHER, BC | LOC: HYPER 14:42 | DX: T81.89XD Other complications of procedures, not elsewhere classified, subsequent encounter (principal); E11.622 Type 2 diabetes mellitus with other skin ulcer; L98.491 Non-pressure chronic ulcer of skin of other sites limited to breakdown of skin; L59.8 Other specified disorders of the skin and subcutaneous tissue related to radiation; S01.80XD Unspecified open wound of other part of head, subsequent encounter; C44.729 Squamous cell carcinoma of skin of left lower limb, including hip; C44.320 Squamous cell carcinoma of skin of unspecified parts of face; M87.88 Other osteonecrosis, other site; I48.91 Unspecified atrial fibrillation; I50.32 Chronic diastolic (congestive) heart failure; M19.90 Unspecified osteoarthritis, unspecified site; Z86.73 Personal history of transient ischemic attack (TIA), and cerebral infarction without residual deficits; Z95.0 Presence of cardiac pacemaker; Z87.891 Personal history of nicotine dependence; Z79.01 Long term (current) use of anticoagulants; Y83.8 Other surgical procedures as the cause of abnormal reaction of the patient, or of later complication, without mention of misadventure at the time of the procedure; Y84.2 Radiological procedure and radiotherapy as the cause of abnormal reaction of the patient, or of later complication, without mention of misadventure at the time of the procedure ==

== ENCOUNTER → 2019-05-24 | Outpatient (CLI) | payer OTHER, BC ==
[~2019-05-24] MED LIST changes: +BUPROPION XL300 MG PO; +LIDODERM1 EACH TOP; +MELOXICAM15 MG PO; +NORCO 10-325 T1 EACH PO; +POTASSIUM20 PO; +TRAMADOL 50 MG50 MG PO; +VITAMIN D-40010 MCG PO; -VITAMIN D400 UNI1 PO; +XANAX 0.5 MG0.5 MG PO
== END ==
LOC: HYPER 14:29
DX: T81.89XD Other complications of procedures, not elsewhere classified, subsequent encounter (principal); E11.622 Type 2 diabetes mellitus with other skin ulcer; S01.80XD Unspecified open wound of other part of head, subsequent encounter; L59.8 Other specified disorders of the skin and subcutaneous tissue related to radiation; L98.491 Non-pressure chronic ulcer of skin of other sites limited to breakdown of skin; C44.729 Squamous cell carcinoma of skin of left lower limb, including hip; C44.320 Squamous cell carcinoma of skin of unspecified parts of face; M87.88 Other osteonecrosis, other site; I48.91 Unspecified atrial fibrillation; I50.32 Chronic diastolic (congestive) heart failure; M19.90 Unspecified osteoarthritis, unspecified site; Z86.73 Personal history of transient ischemic attack (TIA), and cerebral infarction without residual deficits; Z87.891 Personal history of nicotine dependence; Z95.0 Presence of cardiac pacemaker; Z79.01 Long term (current) use of anticoagulants; Y83.8 Other surgical procedures as the cause of abnormal reaction of the patient, or of later complication, without mention of misadventure at the time of the procedure; X58.XXXD Exposure to other specified factors, subsequent encounter; Y84.2 Radiological procedure and radiotherapy as the cause of abnormal reaction of the patient, or of later complication, without mention of misadventure at the time of the procedure

== ENCOUNTER → 2019-05-25 | Outpatient (CLI) | payer OTHER, BC | LOC: HYPER 13:00 | DX: T81.89XD Other complications of procedures, not elsewhere classified, subsequent encounter (principal); E11.622 Type 2 diabetes mellitus with other skin ulcer; L98.491 Non-pressure chronic ulcer of skin of other sites limited to breakdown of skin; L59.8 Other specified disorders of the skin and subcutaneous tissue related to radiation; S01.80XD Unspecified open wound of other part of head, subsequent encounter; C44.729 Squamous cell carcinoma of skin of left lower limb, including hip; C44.320 Squamous cell carcinoma of skin of unspecified parts of face; M87.88 Other osteonecrosis, other site; I48.91 Unspecified atrial fibrillation; I50.32 Chronic diastolic (congestive) heart failure; M19.90 Unspecified osteoarthritis, unspecified site; Z86.73 Personal history of transient ischemic attack (TIA), and cerebral infarction without residual deficits; Z95.0 Presence of cardiac pacemaker; Z87.891 Personal history of nicotine dependence; Z79.01 Long term (current) use of anticoagulants; Y84.2 Radiological procedure and radiotherapy as the cause of abnormal reaction of the patient, or of later complication, without mention of misadventure at the time of the procedure; Y83.8 Other surgical procedures as the cause of abnormal reaction of the patient, or of later complication, without mention of misadventure at the time of the procedure; X58.XXXD Exposure to other specified factors, subsequent encounter ==

== ENCOUNTER → 2019-05-26 | Outpatient (CLI) | payer OTHER, BC ==
[2019-05-26 11:30] VITALS: BP 159/66
[2019-05-26 12:55] VITALS: BP 168/61
--- NOTE | 2019-05-26 14:08 | NUR ---
IN FOR 2ND DOSE OF INJECTAFER. STATED FEELING A LITTLE STRONGER SINCE FIRST DOSE LAST WEEK. DENIED PAIN OR NAUSEA AFTER INFUSION LAST WEEK. PICC LINE IN [place]AMELA FLUSHED EASILY AND RECEIVED GOOD BLOOD RETURN. SITE WNL. TOLERATED INFUSION WITHOUT INCIDENT. OBSERVED FOR 30 MINUTES. POST VITAL SIGNS STABLE. DISMISSED IN WEAK BUT STABLE CONDITION.
== END ==
LOC: OPONC 09:26
DX: D50.9 Iron deficiency anemia, unspecified (principal)
CPT/HCPCS: 95000

== ENCOUNTER → 2019-05-26 | Outpatient (CLI) | payer OTHER, BC | LOC: HYPER 11:39 | DX: T81.89XD Other complications of procedures, not elsewhere classified, subsequent encounter (principal); E11.622 Type 2 diabetes mellitus with other skin ulcer; L98.491 Non-pressure chronic ulcer of skin of other sites limited to breakdown of skin; S01.80XD Unspecified open wound of other part of head, subsequent encounter; L59.8 Other specified disorders of the skin and subcutaneous tissue related to radiation; C44.729 Squamous cell carcinoma of skin of left lower limb, including hip; C44.320 Squamous cell carcinoma of skin of unspecified parts of face; M87.88 Other osteonecrosis, other site; I48.91 Unspecified atrial fibrillation; I50.32 Chronic diastolic (congestive) heart failure; M19.90 Unspecified osteoarthritis, unspecified site; Z87.891 Personal history of nicotine dependence; Z86.73 Personal history of transient ischemic attack (TIA), and cerebral infarction without residual deficits; Z95.0 Presence of cardiac pacemaker; Z79.01 Long term (current) use of anticoagulants; Y84.2 Radiological procedure and radiotherapy as the cause of abnormal reaction of the patient, or of later complication, without mention of misadventure at the time of the procedure; Y83.8 Other surgical procedures as the cause of abnormal reaction of the patient, or of later complication, without mention of misadventure at the time of the procedure ==

== ENCOUNTER → 2019-05-29 | Outpatient (CLI) | payer OTHER, BC | LOC: HYPER 10:17 | DX: T81.89XD Other complications of procedures, not elsewhere classified, subsequent encounter (principal); C44.729 Squamous cell carcinoma of skin of left lower limb, including hip; C44.320 Squamous cell carcinoma of skin of unspecified parts of face; M87.88 Other osteonecrosis, other site; S01.80XD Unspecified open wound of other part of head, subsequent encounter; E11.622 Type 2 diabetes mellitus with other skin ulcer; L98.491 Non-pressure chronic ulcer of skin of other sites limited to breakdown of skin; L59.8 Other specified disorders of the skin and subcutaneous tissue related to radiation; I48.91 Unspecified atrial fibrillation; I50.30 Unspecified diastolic (congestive) heart failure; M19.90 Unspecified osteoarthritis, unspecified site; M35.3 Polymyalgia rheumatica; M48.00 Spinal stenosis, site unspecified; Z87.891 Personal history of nicotine dependence; X58.XXXD Exposure to other specified factors, subsequent encounter; Y83.8 Other surgical procedures as the cause of abnormal reaction of the patient, or of later complication, without mention of misadventure at the time of the procedure ==

== ENCOUNTER → 2019-05-30 | Outpatient (CLI) | payer OTHER, BC | LOC: HYPER 12:24 | DX: T81.89XD Other complications of procedures, not elsewhere classified, subsequent encounter (principal); E11.622 Type 2 diabetes mellitus with other skin ulcer; L98.491 Non-pressure chronic ulcer of skin of other sites limited to breakdown of skin; L59.8 Other specified disorders of the skin and subcutaneous tissue related to radiation; S01.80XD Unspecified open wound of other part of head, subsequent encounter; C44.729 Squamous cell carcinoma of skin of left lower limb, including hip; C44.320 Squamous cell carcinoma of skin of unspecified parts of face; Z95.0 Presence of cardiac pacemaker; Z87.891 Personal history of nicotine dependence; Z79.01 Long term (current) use of anticoagulants; X58.XXXD Exposure to other specified factors, subsequent encounter; Y84.2 Radiological procedure and radiotherapy as the cause of abnormal reaction of the patient, or of later complication, without mention of misadventure at the time of the procedure; Y83.8 Other surgical procedures as the cause of abnormal reaction of the patient, or of later complication, without mention of misadventure at the time of the procedure ==

== ENCOUNTER → 2019-05-31 | Outpatient (CLI) | payer OTHER, BC | LOC: HYPER 12:30 | DX: T81.89XD Other complications of procedures, not elsewhere classified, subsequent encounter (principal); E11.622 Type 2 diabetes mellitus with other skin ulcer; L98.491 Non-pressure chronic ulcer of skin of other sites limited to breakdown of skin; L59.8 Other specified disorders of the skin and subcutaneous tissue related to radiation; S01.80XD Unspecified open wound of other part of head, subsequent encounter; C44.320 Squamous cell carcinoma of skin of unspecified parts of face; C44.729 Squamous cell carcinoma of skin of left lower limb, including hip; M87.88 Other osteonecrosis, other site; I49.1 Atrial premature depolarization; I50.32 Chronic diastolic (congestive) heart failure; M19.90 Unspecified osteoarthritis, unspecified site; Z87.891 Personal history of nicotine dependence; Z79.01 Long term (current) use of anticoagulants; Z85.828 Personal history of other malignant neoplasm of skin; Z86.73 Personal history of transient ischemic attack (TIA), and cerebral infarction without residual deficits; Z95.0 Presence of cardiac pacemaker; X58.XXXD Exposure to other specified factors, subsequent encounter; Y84.2 Radiological procedure and radiotherapy as the cause of abnormal reaction of the patient, or of later complication, without mention of misadventure at the time of the procedure ==

== ENCOUNTER → 2019-06-01 | Outpatient (CLI) | payer OTHER, BC | LOC: HYPER 15:45 | DX: T81.89XD Other complications of procedures, not elsewhere classified, subsequent encounter (principal); E11.622 Type 2 diabetes mellitus with other skin ulcer; L98.491 Non-pressure chronic ulcer of skin of other sites limited to breakdown of skin; L59.8 Other specified disorders of the skin and subcutaneous tissue related to radiation; S01.80XD Unspecified open wound of other part of head, subsequent encounter; C44.320 Squamous cell carcinoma of skin of unspecified parts of face; C44.729 Squamous cell carcinoma of skin of left lower limb, including hip; M87.88 Other osteonecrosis, other site; I48.91 Unspecified atrial fibrillation; I50.32 Chronic diastolic (congestive) heart failure; M19.90 Unspecified osteoarthritis, unspecified site; Z85.828 Personal history of other malignant neoplasm of skin; Z86.73 Personal history of transient ischemic attack (TIA), and cerebral infarction without residual deficits; Z87.891 Personal history of nicotine dependence; Z95.0 Presence of cardiac pacemaker; Z79.01 Long term (current) use of anticoagulants; Y83.8 Other surgical procedures as the cause of abnormal reaction of the patient, or of later complication, without mention of misadventure at the time of the procedure; Y84.2 Radiological procedure and radiotherapy as the cause of abnormal reaction of the patient, or of later complication, without mention of misadventure at the time of the procedure; X58.XXXD Exposure to other specified factors, subsequent encounter ==

== ENCOUNTER → 2019-06-02 | Outpatient (CLI) | payer OTHER, BC | LOC: HYPER 14:36 | DX: T81.89XD Other complications of procedures, not elsewhere classified, subsequent encounter (principal); E11.622 Type 2 diabetes mellitus with other skin ulcer; L98.491 Non-pressure chronic ulcer of skin of other sites limited to breakdown of skin; L59.8 Other specified disorders of the skin and subcutaneous tissue related to radiation; C44.729 Squamous cell carcinoma of skin of left lower limb, including hip; C44.320 Squamous cell carcinoma of skin of unspecified parts of face; M87.88 Other osteonecrosis, other site; I48.91 Unspecified atrial fibrillation; I50.32 Chronic diastolic (congestive) heart failure; M19.90 Unspecified osteoarthritis, unspecified site; Z85.79 Personal history of other malignant neoplasms of lymphoid, hematopoietic and related tissues; Z86.73 Personal history of transient ischemic attack (TIA), and cerebral infarction without residual deficits; Z95.0 Presence of cardiac pacemaker; Z87.891 Personal history of nicotine dependence; Z79.01 Long term (current) use of anticoagulants; Y83.8 Other surgical procedures as the cause of abnormal reaction of the patient, or of later complication, without mention of misadventure at the time of the procedure; Y84.2 Radiological procedure and radiotherapy as the cause of abnormal reaction of the patient, or of later complication, without mention of misadventure at the time of the procedure; S01.80XD Unspecified open wound of other part of head, subsequent encounter ==

== ENCOUNTER → 2019-06-05 | Outpatient (CLI) | payer OTHER, BC | LOC: HYPER 09:11 | DX: T81.89XD Other complications of procedures, not elsewhere classified, subsequent encounter (principal); Y83.8 Other surgical procedures as the cause of abnormal reaction of the patient, or of later complication, without mention of misadventure at the time of the procedure; C44.729 Squamous cell carcinoma of skin of left lower limb, including hip; E11.622 Type 2 diabetes mellitus with other skin ulcer; L98.491 Non-pressure chronic ulcer of skin of other sites limited to breakdown of skin; S01.80XD Unspecified open wound of other part of head, subsequent encounter; L59.8 Other specified disorders of the skin and subcutaneous tissue related to radiation; M87.88 Other osteonecrosis, other site; C44.320 Squamous cell carcinoma of skin of unspecified parts of face; I48.91 Unspecified atrial fibrillation; I50.32 Chronic diastolic (congestive) heart failure; M19.90 Unspecified osteoarthritis, unspecified site; M48.00 Spinal stenosis, site unspecified; M35.3 Polymyalgia rheumatica; Z95.0 Presence of cardiac pacemaker; Z87.891 Personal history of nicotine dependence; Z86.73 Personal history of transient ischemic attack (TIA), and cerebral infarction without residual deficits; Z85.79 Personal history of other malignant neoplasms of lymphoid, hematopoietic and related tissues; X58.XXXD Exposure to other specified factors, subsequent encounter; Y84.2 Radiological procedure and radiotherapy as the cause of abnormal reaction of the patient, or of later complication, without mention of misadventure at the time of the procedure ==

== ENCOUNTER → 2019-06-06 | Outpatient (CLI) | payer OTHER, BC | LOC: HYPER 11:22 | DX: T81.89XD Other complications of procedures, not elsewhere classified, subsequent encounter (principal); E11.622 Type 2 diabetes mellitus with other skin ulcer; L98.491 Non-pressure chronic ulcer of skin of other sites limited to breakdown of skin; L59.8 Other specified disorders of the skin and subcutaneous tissue related to radiation; S01.80XD Unspecified open wound of other part of head, subsequent encounter; C44.729 Squamous cell carcinoma of skin of left lower limb, including hip; C44.320 Squamous cell carcinoma of skin of unspecified parts of face; I48.91 Unspecified atrial fibrillation; I50.32 Chronic diastolic (congestive) heart failure; M35.3 Polymyalgia rheumatica; M48.00 Spinal stenosis, site unspecified; M19.90 Unspecified osteoarthritis, unspecified site; M87.88 Other osteonecrosis, other site; Z86.73 Personal history of transient ischemic attack (TIA), and cerebral infarction without residual deficits; Z95.0 Presence of cardiac pacemaker; Z87.891 Personal history of nicotine dependence; X58.XXXD Exposure to other specified factors, subsequent encounter; Y84.2 Radiological procedure and radiotherapy as the cause of abnormal reaction of the patient, or of later complication, without mention of misadventure at the time of the procedure; Y83.8 Other surgical procedures as the cause of abnormal reaction of the patient, or of later complication, without mention of misadventure at the time of the procedure ==

== ENCOUNTER → 2019-06-07 | Outpatient (CLI) | payer OTHER, BC | LOC: HYPER 12:30 | DX: T81.89XD Other complications of procedures, not elsewhere classified, subsequent encounter (principal); E11.622 Type 2 diabetes mellitus with other skin ulcer; L98.491 Non-pressure chronic ulcer of skin of other sites limited to breakdown of skin; L59.8 Other specified disorders of the skin and subcutaneous tissue related to radiation; C44.729 Squamous cell carcinoma of skin of left lower limb, including hip; C44.320 Squamous cell carcinoma of skin of unspecified parts of face; S01.80XD Unspecified open wound of other part of head, subsequent encounter; M87.88 Other osteonecrosis, other site; I48.91 Unspecified atrial fibrillation; I50.32 Chronic diastolic (congestive) heart failure; M19.90 Unspecified osteoarthritis, unspecified site; Z86.73 Personal history of transient ischemic attack (TIA), and cerebral infarction without residual deficits; Z85.79 Personal history of other malignant neoplasms of lymphoid, hematopoietic and related tissues; Z87.891 Personal history of nicotine dependence; Z95.0 Presence of cardiac pacemaker; Z79.01 Long term (current) use of anticoagulants; Y84.2 Radiological procedure and radiotherapy as the cause of abnormal reaction of the patient, or of later complication, without mention of misadventure at the time of the procedure; Y83.8 Other surgical procedures as the cause of abnormal reaction of the patient, or of later complication, without mention of misadventure at the time of the procedure; X58.XXXD Exposure to other specified factors, subsequent encounter ==

== ENCOUNTER → 2019-06-08 | Outpatient (CLI) | payer OTHER, BC | LOC: HYPER 15:35 | DX: T81.89XD Other complications of procedures, not elsewhere classified, subsequent encounter (principal); E11.622 Type 2 diabetes mellitus with other skin ulcer; L98.491 Non-pressure chronic ulcer of skin of other sites limited to breakdown of skin; L59.8 Other specified disorders of the skin and subcutaneous tissue related to radiation; S01.80XD Unspecified open wound of other part of head, subsequent encounter; C44.729 Squamous cell carcinoma of skin of left lower limb, including hip; C44.320 Squamous cell carcinoma of skin of unspecified parts of face; M87.88 Other osteonecrosis, other site; I48.91 Unspecified atrial fibrillation; I50.32 Chronic diastolic (congestive) heart failure; M19.90 Unspecified osteoarthritis, unspecified site; Z86.73 Personal history of transient ischemic attack (TIA), and cerebral infarction without residual deficits; Z85.79 Personal history of other malignant neoplasms of lymphoid, hematopoietic and related tissues; Z87.891 Personal history of nicotine dependence; Z95.0 Presence of cardiac pacemaker; Z79.01 Long term (current) use of anticoagulants; Y84.2 Radiological procedure and radiotherapy as the cause of abnormal reaction of the patient, or of later complication, without mention of misadventure at the time of the procedure; Y83.8 Other surgical procedures as the cause of abnormal reaction of the patient, or of later complication, without mention of misadventure at the time of the procedure; X58.XXXD Exposure to other specified factors, subsequent encounter ==

== ENCOUNTER → 2019-06-09 | Outpatient (CLI) | payer OTHER, BC | LOC: HYPER 13:24 | DX: T81.89XD Other complications of procedures, not elsewhere classified, subsequent encounter (principal); E11.622 Type 2 diabetes mellitus with other skin ulcer; L98.491 Non-pressure chronic ulcer of skin of other sites limited to breakdown of skin; L59.8 Other specified disorders of the skin and subcutaneous tissue related to radiation; C44.729 Squamous cell carcinoma of skin of left lower limb, including hip; C44.320 Squamous cell carcinoma of skin of unspecified parts of face; S01.80XD Unspecified open wound of other part of head, subsequent encounter; M87.88 Other osteonecrosis, other site; I48.91 Unspecified atrial fibrillation; I50.32 Chronic diastolic (congestive) heart failure; M19.90 Unspecified osteoarthritis, unspecified site; Z85.828 Personal history of other malignant neoplasm of skin; Z85.79 Personal history of other malignant neoplasms of lymphoid, hematopoietic and related tissues; Z86.73 Personal history of transient ischemic attack (TIA), and cerebral infarction without residual deficits; Z87.891 Personal history of nicotine dependence; Z95.0 Presence of cardiac pacemaker; Z79.01 Long term (current) use of anticoagulants; Y84.2 Radiological procedure and radiotherapy as the cause of abnormal reaction of the patient, or of later complication, without mention of misadventure at the time of the procedure; Y83.8 Other surgical procedures as the cause of abnormal reaction of the patient, or of later complication, without mention of misadventure at the time of the procedure; X58.XXXD Exposure to other specified factors, subsequent encounter ==

== ENCOUNTER → 2019-06-12 | Outpatient (CLI) | payer OTHER, BC | LOC: HYPER 13:41 | DX: T81.89XD Other complications of procedures, not elsewhere classified, subsequent encounter (principal); E11.622 Type 2 diabetes mellitus with other skin ulcer; L98.491 Non-pressure chronic ulcer of skin of other sites limited to breakdown of skin; L59.8 Other specified disorders of the skin and subcutaneous tissue related to radiation; S01.80XD Unspecified open wound of other part of head, subsequent encounter; C44.729 Squamous cell carcinoma of skin of left lower limb, including hip; C44.320 Squamous cell carcinoma of skin of unspecified parts of face; I50.32 Chronic diastolic (congestive) heart failure; I48.91 Unspecified atrial fibrillation; M19.90 Unspecified osteoarthritis, unspecified site; M48.00 Spinal stenosis, site unspecified; Z85.828 Personal history of other malignant neoplasm of skin; Z85.72 Personal history of non-Hodgkin lymphomas; Z86.73 Personal history of transient ischemic attack (TIA), and cerebral infarction without residual deficits; Z87.891 Personal history of nicotine dependence; Z79.01 Long term (current) use of anticoagulants; Z95.0 Presence of cardiac pacemaker; Y83.8 Other surgical procedures as the cause of abnormal reaction of the patient, or of later complication, without mention of misadventure at the time of the procedure; X58.XXXD Exposure to other specified factors, subsequent encounter ==

== ENCOUNTER → 2019-06-13 | Outpatient (CLI) | payer OTHER, BC | LOC: HYPER 16:03 | DX: T81.89XD Other complications of procedures, not elsewhere classified, subsequent encounter (principal); E11.622 Type 2 diabetes mellitus with other skin ulcer; L98.491 Non-pressure chronic ulcer of skin of other sites limited to breakdown of skin; L59.8 Other specified disorders of the skin and subcutaneous tissue related to radiation; S01.80XD Unspecified open wound of other part of head, subsequent encounter; C44.729 Squamous cell carcinoma of skin of left lower limb, including hip; C44.320 Squamous cell carcinoma of skin of unspecified parts of face; M87.88 Other osteonecrosis, other site; I48.91 Unspecified atrial fibrillation; I50.32 Chronic diastolic (congestive) heart failure; M19.90 Unspecified osteoarthritis, unspecified site; Z86.73 Personal history of transient ischemic attack (TIA), and cerebral infarction without residual deficits; Z85.9 Personal history of malignant neoplasm, unspecified; Z87.891 Personal history of nicotine dependence; Z79.01 Long term (current) use of anticoagulants; X58.XXXD Exposure to other specified factors, subsequent encounter; Z95.0 Presence of cardiac pacemaker; Y83.8 Other surgical procedures as the cause of abnormal reaction of the patient, or of later complication, without mention of misadventure at the time of the procedure; Y84.2 Radiological procedure and radiotherapy as the cause of abnormal reaction of the patient, or of later complication, without mention of misadventure at the time of the procedure ==

== ENCOUNTER → 2019-06-15 | Outpatient (CLI) | payer OTHER, BC | LOC: HYPER 09:47 | DX: T81.89XD Other complications of procedures, not elsewhere classified, subsequent encounter (principal); E11.622 Type 2 diabetes mellitus with other skin ulcer; L98.491 Non-pressure chronic ulcer of skin of other sites limited to breakdown of skin; L59.8 Other specified disorders of the skin and subcutaneous tissue related to radiation; S01.80XD Unspecified open wound of other part of head, subsequent encounter; C44.729 Squamous cell carcinoma of skin of left lower limb, including hip; C44.320 Squamous cell carcinoma of skin of unspecified parts of face; I48.91 Unspecified atrial fibrillation; I50.32 Chronic diastolic (congestive) heart failure; M35.3 Polymyalgia rheumatica; M48.00 Spinal stenosis, site unspecified; M19.90 Unspecified osteoarthritis, unspecified site; M87.88 Other osteonecrosis, other site; Z86.73 Personal history of transient ischemic attack (TIA), and cerebral infarction without residual deficits; Z95.0 Presence of cardiac pacemaker; Z87.891 Personal history of nicotine dependence; X58.XXXD Exposure to other specified factors, subsequent encounter; Y84.2 Radiological procedure and radiotherapy as the cause of abnormal reaction of the patient, or of later complication, without mention of misadventure at the time of the procedure; Y83.8 Other surgical procedures as the cause of abnormal reaction of the patient, or of later complication, without mention of misadventure at the time of the procedure ==

== ENCOUNTER → 2019-06-16 | Outpatient (CLI) | payer OTHER, BC | LOC: HYPER 15:37 | DX: T81.89XD Other complications of procedures, not elsewhere classified, subsequent encounter (principal); L59.8 Other specified disorders of the skin and subcutaneous tissue related to radiation; E11.622 Type 2 diabetes mellitus with other skin ulcer; L98.491 Non-pressure chronic ulcer of skin of other sites limited to breakdown of skin; S01.80XD Unspecified open wound of other part of head, subsequent encounter; C44.729 Squamous cell carcinoma of skin of left lower limb, including hip; C44.320 Squamous cell carcinoma of skin of unspecified parts of face; I48.91 Unspecified atrial fibrillation; I50.32 Chronic diastolic (congestive) heart failure; M87.88 Other osteonecrosis, other site; M35.3 Polymyalgia rheumatica; M48.00 Spinal stenosis, site unspecified; M19.90 Unspecified osteoarthritis, unspecified site; Z95.0 Presence of cardiac pacemaker; Z87.891 Personal history of nicotine dependence; Z86.73 Personal history of transient ischemic attack (TIA), and cerebral infarction without residual deficits; X58.XXXD Exposure to other specified factors, subsequent encounter; Y84.2 Radiological procedure and radiotherapy as the cause of abnormal reaction of the patient, or of later complication, without mention of misadventure at the time of the procedure ==

== ENCOUNTER → 2021-05-26 | Outpatient (CLI) | payer OTHER, BC | LOC: HYPER 08:25 | PROVIDERS: ATTEND Emergency Medicine Emergency Medical Services | DX: E11.621 Type 2 diabetes mellitus with foot ulcer (principal); I70.235 Atherosclerosis of native arteries of right leg with ulceration of other part of foot; L97.512 Non-pressure chronic ulcer of other part of right foot with fat layer exposed; L89.623 Pressure ulcer of left heel, stage 3; I48.91 Unspecified atrial fibrillation; I50.32 Chronic diastolic (congestive) heart failure; M35.3 Polymyalgia rheumatica; M48.00 Spinal stenosis, site unspecified; M19.90 Unspecified osteoarthritis, unspecified site; F41.9 Anxiety disorder, unspecified; F32.9 Major depressive disorder, single episode, unspecified; Z86.73 Personal history of transient ischemic attack (TIA), and cerebral infarction without residual deficits; Z95.0 Presence of cardiac pacemaker; Z79.01 Long term (current) use of anticoagulants; Z87.891 Personal history of nicotine dependence; Z95.4 Presence of other heart-valve replacement; Z98.49 Cataract extraction status, unspecified eye; Z95.828 Presence of other vascular implants and grafts; Z85.79 Personal history of other malignant neoplasms of lymphoid, hematopoietic and related tissues ==